=== PATIENT | male | born 1980 | race Caucasian/White ===

== ENCOUNTER 2017-08-01 20:27 | Inpatient (IN) | payer OTHER ==
[~2017-08-01] VITALS: Ht 182.9 cm; Wt 68.0 kg
[2017-08-01] MEDS ORDERED: IV NORMAL SALINE 1000 ML BAG IV ONE (21:00)
[2017-08-01] MEDS ORDERED: HYDROMORPHONE 1 MG/1 ML DISP.SYRIN IV ONE (21:00)
[2017-08-01] MEDS ORDERED: TDAP DIPH,PERTUSS,TET VAC/PF 0.5 ML DISP.SYRIN IM ONE ×2 (21:00→21:30)
[2017-08-01] MEDS ORDERED: ONDANSETRON 4 MG/2 ML VIAL IV ONE (21:00)
--- NOTE | 2017-08-01 21:00 | NUR ---
ER at pt bedside
--- NOTE | 2017-08-01 21:08 | NUR ---
EVITA arrived to speak with pt.
[2017-08-01] MEDS ORDERED: ONDANSETRON 4 MG/2 ML VIAL ONE (21:20)
[2017-08-01] MEDS ORDERED: HYDROMORPHONE 1 MG/1 ML DISP.SYRIN ONE (21:20)
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
[2017-08-01 21:35] LABS: BASOPHILS # (AUTO) 0.1 K/uL (0.0-8.0); BASOPHILS % (AUTO) 0.3 % (0.0-2.0); EOSINOPHILS % (AUTO) 0.3 % (0.0-7.0); HEMATOCRIT 43.4 % (36.7-47.1); HEMOGLOBIN 14.6 g/dL (12.5-16.3); LYMPHOCYTES # (AUTO) 2.6 K/uL (20.0-40.0); LYMPHOCYTES % (AUTO) 14.3 % (20.5-51.5); MEAN CORPUSCULAR HGB CONC 34 g/dL (32.5-36.3); MEAN CORPUSCULAR VOLUME 83.3 fL (73.0-96.2); MONOCYTES # (AUTO) 1.3 K/uL (2.0-10.0); MONOCYTES % (AUTO) 6.8 % (0.0-11.0); NEUTROPHILS # (AUTO) 14.4 K/uL (1.8-8.9); NEUTROPHILS % (AUTO) 78.3 % (38.5-71.5); PLATELET COUNT (AUTO) 260 K/uL (152-348); RED BLOOD CELL COUNT(AUTO) 5.21 MIL/uL (4.06-5.63); WHITE BLOOD COUNT (AUTO) 18.4 K/uL (3.6-10.2)
[2017-08-01 21:43] LABS: CREATININE 1.2 mg/dL (0.6-1.3)
[2017-08-01 21:48] LABS: BILIRUBIN,DIRECT 0.1 mg/dL (0.0-0.2); BILIRUBIN,TOTAL 0.4 mg/dL (0.2-1.0); TOTAL PROTEIN, SERUM 7.3 g/dL (6.4-8.2)
--- NOTE | 2017-08-01 22:35 | NUR ---
Pagejulianne Mercado for ortho consult.
--- NOTE | 2017-08-01 23:15 | NUR ---
FIORELLA LOFTON speaking w/ ortho.
[2017-08-01] MEDS ORDERED: NEOMY/BACITRA/POLYMYXIN B OINT UD PACKET TP ONE ×2 (23:30→23:45)
[2017-08-01] MEDS ORDERED: LIDOCAINE HCL 1% 20 ML VIAL IJ ONE (23:45)
[2017-08-01] MEDS ORDERED: LORAZEPAM 2 MG/1 ML VIAL IV ONE (23:45)
[2017-08-01] MEDS ORDERED: KETAMINE HCL 500 MG/10 ML INJ IV ONE (23:45)
[2017-08-02] MEDS ORDERED: KETAMINE HCL 500 MG/10 ML INJ ONE (00:05)
[2017-08-02] MEDS ORDERED: LORAZEPAM 2 MG/1 ML VIAL ONE (00:06)
[2017-08-02] MEDS ORDERED: ONDANSETRON 4 MG/2 ML VIAL IV PRN (01:15)
[2017-08-02] MEDS ORDERED: diphenhydrAMINE 50 MG/1 ML VIAL IV PRN (01:15)
[2017-08-02] MEDS ORDERED: ACETAMINOPHEN 650 MG SUPP.RECT RC PRN (01:15)
[2017-08-02] MEDS ORDERED: HYDROMORPHONE 1 MG/1 ML DISP.SYRIN IV PRN (01:15)
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
--- NOTE | 2017-08-02 01:55 | NUR ---
Pt. admitted to med surg, under care of Dr. Walden Belongs List completed
[2017-08-02] MEDS ORDERED: HYDROMORPHONE 1 MG/1 ML DISP.SYRIN ONE (02:01)
[2017-08-02 02:12] VITALS: BP 112/77
[2017-08-02] MEDS: IV D5/ 0.9% NACL 1,000 ML IV PRN ×2 (03:27→14:36)
[2017-08-02 04:35] VITALS: BP 100/52
[2017-08-02 06:36] LABS: BASOPHILS % (AUTO) 0.2 % (0.0-2.0); EOSINOPHILS % (AUTO) 0.2 % (0.0-7.0); HEMATOCRIT 41.3 % (36.7-47.1); HEMOGLOBIN 13.8 g/dL (12.5-16.3); LYMPHOCYTES # (AUTO) 2.2 K/uL (20.0-40.0); LYMPHOCYTES % (AUTO) 20.2 % (20.5-51.5); MEAN CORPUSCULAR HEMOGLOBIN 28.1 uug (23.8-33.4); MEAN CORPUSCULAR HGB CONC 34 g/dL (32.5-36.3); MEAN CORPUSCULAR VOLUME 83.9 fL (73.0-96.2); MONOCYTES % (AUTO) 9.6 % (0.0-11.0); NEUTROPHILS # (AUTO) 7.5 K/uL (1.8-8.9); NEUTROPHILS % (AUTO) 69.8 % (38.5-71.5); PLATELET COUNT (AUTO) 250 K/uL (152-348); RED BLOOD CELL COUNT(AUTO) 4.92 MIL/uL (4.06-5.63); WHITE BLOOD COUNT (AUTO) 10.7 K/uL (3.6-10.2)
[2017-08-02 07:07] LABS: BILIRUBIN,TOTAL 0.8 mg/dL (0.2-1.0); MAGNESIUM 2.6 mg/dL (1.8-2.4); PHOSPHOROUS 3.2 mg/dL (2.5-4.9); POTASSIUM 3.9 mmol/L (3.5-5.1); TOTAL PROTEIN, SERUM 6.9 g/dL (6.4-8.2)
--- NOTE | 2017-08-02 07:30 | NUR ---
PT RECEIVED IN BED SLEEPING,V/S ARE STABLE,NO C/O PAIN NOTED.CALL LIGHT WITH IN REACH
[2017-08-02] MEDS: FAMOTIDINE. 20 MG/2 ML VIAL IV SCH (08:06)
[2017-08-02] MEDS: HYDROMORPHONE 4 MG/1 ML DISP.SYRIN IV PRN ×2 (08:33→23:00)
[2017-08-02 11:30] VITALS: BP 108/72
[2017-08-02] MEDS: NICOTINE 14 MG/24HR PATCH TD SCH (14:36)
[2017-08-02 15:32] VITALS: BP 98/55
--- NOTE | 2017-08-02 17:00 | NUR ---
PT SEEN BY DR RODAS ORDERS RECEIVED NOTED AND CARRIED OUT
[2017-08-02 18:16] LABS: *BILIRUBIN,URIN NEGATIVE (NEGATIVE); *BLOOD, URINE NEGATIVE (NEGATIVE); *CLARITY,URINE CLEAR (CLEAR); *COLOR,URINE YELLOW (YELLOW); *KETONES,URINE NEGATIVE (NEGATIVE); *PROTEIN,URINE NEGATIVE (NEGATIVE); *UROBILINOGEN,URINE 0.2 E.U./dl (NORMAL); LEUKOCYTE ESTERASE ,URINE NEGATIVE (NEGATIVE); NITRITE, URINE NEGATIVE (NEGATIVE); PH,URINE 5.5 (5.0-8.0); UGLUCOSE NEGATIVE (NEGATIVE)
[2017-08-02 18:43] LABS: MUCUS,URINE MANY /LPF (0-FEW); URINE AMORPHOUS URATE FEW /HPF; WBC,URINE 0-3 /HPF (0-3)
--- NOTE | 2017-08-02 19:00 | NUR ---
Received patient in bed alert oriented, able to make needs known, left arm with sling. cont on pain management, call light within reach. remind patient to be npo after midnight. family at bedside.
[2017-08-02 20:00] VITALS: BP 127/75
[2017-08-03 05:57] LABS: BASOPHILS % (AUTO) 0.4 % (0.0-2.0); EOSINOPHILS # (AUTO) 0.1 K/uL (0.0-0.7); EOSINOPHILS % (AUTO) 1.3 % (0.0-7.0); HEMATOCRIT 41.6 % (36.7-47.1); HEMOGLOBIN 14.1 g/dL (12.5-16.3); LYMPHOCYTES # (AUTO) 2.6 K/uL (20.0-40.0); MEAN CORPUSCULAR HEMOGLOBIN 28.3 uug (23.8-33.4); MEAN CORPUSCULAR HGB CONC 34 g/dL (32.5-36.3); MEAN CORPUSCULAR VOLUME 83.7 fL (73.0-96.2); MONOCYTES # (AUTO) 1.1 K/uL (2.0-10.0); MONOCYTES % (AUTO) 12.3 % (0.0-11.0); NEUTROPHILS # (AUTO) 5.4 K/uL (1.8-8.9); PLATELET COUNT (AUTO) 243 K/uL (152-348); RED BLOOD CELL COUNT(AUTO) 4.97 MIL/uL (4.06-5.63); WHITE BLOOD COUNT (AUTO) 9.3 K/uL (3.6-10.2)
[2017-08-03 06:02] LABS: BILIRUBIN,TOTAL 0.7 mg/dL (0.2-1.0); CREATININE 0.9 mg/dL (0.6-1.3); MAGNESIUM 2.1 mg/dL (1.8-2.4); PHOSPHOROUS 3.4 mg/dL (2.5-4.9); POTASSIUM 3.6 mmol/L (3.5-5.1); TOTAL PROTEIN, SERUM 6.9 g/dL (6.4-8.2)
[2017-08-03] MEDS: HYDROMORPHONE 4 MG/1 ML DISP.SYRIN IV PRN ×2 (06:04→09:41)
[2017-08-03] MEDS: IV D5/ 0.9% NACL 1,000 ML IV PRN (06:05)
[2017-08-03 06:11] LABS: THYROID STIMULATING HORMONE 1.699 mIU/mL (0.358-3.740)
[2017-08-03 06:37] VITALS: BP 127/74
--- NOTE | 2017-08-03 07:04 | NUR ---
PATIENT SLEPT MOST OF THE NIGHT, CONT ON PAIN MANAGEMENT, CONT NPO....CONT TO MONITOR, L ARM SLING IN PLACE AT ALL TIME.
--- NOTE | 2017-08-03 07:36 | NUR ---
Received patient in bed alert oriented, able to make needs known, left arm with sling. call light within reach. remind patient to be npo for surgery
[2017-08-03] MEDS: NICOTINE 14 MG/24HR PATCH TD SCH (08:01)
[2017-08-03] MEDS: FAMOTIDINE. 20 MG/2 ML VIAL IV SCH (08:09)
[2017-08-03 11:12] VITALS: BP 110/60
[2017-08-03] MEDS ORDERED: POLYMYXIN B SULFATE 500,000 UNITS, BACITRACIN 50,000 UNITS, NORMAL SALINE 20 ML MC ONE ×3 (11:45)
[2017-08-03] MEDS ORDERED: ONDANSETRON 4 MG/2 ML VIAL IV ONE (11:53)
[2017-08-03] MEDS ORDERED: IV LACTATED RINGERS SOLUTION 1,000 ML BAG IV ONE (11:53)
[2017-08-03] MEDS ORDERED: CEFAZOLIN 1 G VIAL MC ONE (11:53)
[2017-08-03] MEDS ORDERED: DEXAMETHASONE SOD PHOSPHATE 4 MG INJ IV ONE (11:53)
[2017-08-03] MEDS ORDERED: PROPOFOL 200 MG/20 ML BOTTLE IV ONE (11:53)
[2017-08-03] MEDS ORDERED: LIDOCAINE HCL 2% 20 ML VIAL MC ONE (11:53)
--- NOTE | 2017-08-03 12:13 | NUR ---
pt went to or via bed for surgery in stable condition
[2017-08-03] MEDS ORDERED: HYDROMORPHONE 2 MG/1 ML DISP.SYRIN ONE (12:45)
[2017-08-03] MEDS ORDERED: MIDAZOLAM HCL 2 MG/2 ML VIAL ONE (12:45)
[2017-08-03] MEDS ORDERED: BUPIVACAINE 0.25% 30 ML VIAL ONE (13:18)
[2017-08-03] MEDS ORDERED: BUPIVACAINE/EPI PF 0.25% 30 ML VIAL ONE (13:18)
[2017-08-03] MEDS ORDERED: IPRATROPIUM BROMIDE 0.5 MG/2.5 ML NEBU NEB PRN (13:45)
[2017-08-03] MEDS ORDERED: ALBUTEROL SULFATE 2.5 MG/3 ML NEBU NEB PRN (13:45)
[2017-08-03] MEDS ORDERED: GUAIFENESIN/DEXTROMETHORPHAN 5 ML UDC PO PRN (13:45)
[2017-08-03] MEDS ORDERED: SEVOFLURANE 250 ML BOTTLE ONE (13:52)
[2017-08-03] MEDS ORDERED: FENTANYL CITRATE 100 MCG/2 ML AMPUL ONE (15:02)
--- NOTE | 2017-08-03 15:38 | NUR ---
pt received from recovery room via bed in stable condition.
[2017-08-03 15:45] VITALS: BP 130/76
[2017-08-03 16:05] VITALS: BP 128/71
[2017-08-03] MEDS ORDERED: HYDROCODONE/APAP 10-325 MG TABLET PO PRN (16:15)
[2017-08-03 16:39] VITALS: BP 116/83
[2017-08-03] MEDS: IV D5W-0.45% NS +20 KCL 1,000 ML IV PRN (16:43)
[2017-08-03] MEDS: MORPHINE SULFATE 4 MG/1 ML DISP.SYRIN IV PRN ×2 (17:57→22:22)
--- NOTE | 2017-08-03 19:00 | NUR ---
RECEIVED PATIENT ALERT ORIENTED, CONT ON PAIN MANAGEMENT, LEFT ARM WITH SLING DRESSING INTACT, CALL LIGHT WITHIN REACH. CONT TO MONITOR.
[2017-08-03] MEDS: KETOROLAC TROMETHAMINE 15 MG INJ IVP PRN (20:05)
[2017-08-03 20:18] VITALS: BP 117/71
[2017-08-03] MEDS: CEFAZOLIN 50 ML IV SCH (21:59)
[2017-08-04 04:00] VITALS: BP 110/67
[2017-08-04] MEDS: MORPHINE SULFATE 4 MG/1 ML DISP.SYRIN IV PRN ×4 (04:08→20:14)
[2017-08-04] MEDS: CEFAZOLIN 50 ML IV SCH (05:46)
[2017-08-04] MEDS: PANTOPRAZOLE SODIUM 40 MG TABLET.DR PO SCH (05:47)
[2017-08-04] MEDS: IV D5W-0.45% NS +20 KCL 1,000 ML IV PRN (05:50)
[2017-08-04] MEDS: KETOROLAC TROMETHAMINE 15 MG INJ IVP PRN (06:23)
[2017-08-04 06:38] LABS: BASOPHILS % (AUTO) 0.3 % (0.0-2.0); EOSINOPHILS # (AUTO) 0.1 K/uL (0.0-0.7); EOSINOPHILS % (AUTO) 0.6 % (0.0-7.0); HEMATOCRIT 39.7 % (36.7-47.1); HEMOGLOBIN 13.2 g/dL (12.5-16.3); LYMPHOCYTES # (AUTO) 2.8 K/uL (20.0-40.0); LYMPHOCYTES % (AUTO) 23.2 % (20.5-51.5); MEAN CORPUSCULAR HGB CONC 33 g/dL (32.5-36.3); MEAN CORPUSCULAR VOLUME 84.3 fL (73.0-96.2); MONOCYTES # (AUTO) 1.3 K/uL (2.0-10.0); MONOCYTES % (AUTO) 11.2 % (0.0-11.0); NEUTROPHILS # (AUTO) 7.8 K/uL (1.8-8.9); NEUTROPHILS % (AUTO) 64.7 % (38.5-71.5); PLATELET COUNT (AUTO) 232 K/uL (152-348); RED BLOOD CELL COUNT(AUTO) 4.72 MIL/uL (4.06-5.63)
[2017-08-04 06:53] LABS: BILIRUBIN,TOTAL 0.7 mg/dL (0.2-1.0); MAGNESIUM 1.9 mg/dL (1.8-2.4); PHOSPHOROUS 2.8 mg/dL (2.5-4.9)
--- NOTE | 2017-08-04 07:00 | NUR ---
Received client in bed awake, alert and oriented time 4, able to communicate needs, ambulatory. Voiced wanting to go out and smoke. It was informed that this is a non-smoking facility, continues to voice the need to go out and smoke. Bed at lowest position for safety and call light within reach for assistance
--- NOTE | 2017-08-04 08:07 | NUR ---
Client is leaving outside to smoke a cigarette after being told several times it is unsafe. The nicotine patch was offered and he stated he made his body itch, that even if it was applied he would remove it.
[2017-08-04] MEDS: NICOTINE 14 MG/24HR PATCH TD SCH (09:00)
--- NOTE | 2017-08-04 09:16 | NUR ---
Offered client Nicotine patch again and he refused it stating that it makes him itchy.
[2017-08-04] MEDS: LEVOFLOXACIN 500 MG/D5W 500 MG in PREMIXED 1 EACH IV SCH (11:23)
[2017-08-04 11:29] VITALS: BP 124/72
[2017-08-04] MEDS: ACETAMINOPHEN 325 MG TABLET PO PRN (11:54)
--- NOTE | 2017-08-04 12:01 | NUR ---
Tylenol given for temp of 99.8
[2017-08-04] MEDS: MAGNESIUM HYDROXIDE 30 ML LIQUID UDC PO PRN (12:42)
[2017-08-04] MEDS: DOCUSATE SODIUM 100 MG CAPSULE PO SCH ×2 (12:42→20:17)
--- NOTE | 2017-08-04 12:46 | NUR ---
Reassessment of temperature, 99.2
--- NOTE | 2017-08-04 13:11 | NUR ---
IV site on the right hand removed intact with minimal to none bleeding at the removal site due to leaking
--- NOTE | 2017-08-04 14:05 | NUR ---
New IV started, 20g on the inner right side of the forearm. No complications, client tolerated well
[2017-08-04] MEDS: BACITRACIN ZINC OINT 15 GM TUBE TOP SCH ×2 (14:32→20:16)
[2017-08-04 15:21] VITALS: BP 107/62
--- NOTE | 2017-08-04 18:42 | NUR ---
Client is in bed awake, alert and oriented times 4. Client has been compliant with all nursing care and medication administration. No pain at this time as stated by the client, no apparent signs and symptoms of SOB, distress or discomfort. Bed at lowest position for safety and call light within reach for assistance
--- NOTE | 2017-08-04 19:05 | NUR ---
Stopped the hydration from running and heplocked the client's IV line. Client is going downstairs with his brother. Client knows that he is not allowed to leave the premises. Client stated it would only be five minutes.
--- NOTE | 2017-08-04 19:35 | NUR ---
PT RECEIVED IN BED, AWAKE. FAMILY AT BEDSIDE. A/OX4. ABLE TO MAKE NEEDS KNOWN. V/S STABLE. IN NO ACUTE DISTRESS. PT C/O OF LEFT ARM PAIN AT 01/16. TO ADMIN PAIN MEDICATION ORDERED. IVF INFUSING. ON RA, TOLERATING WELL. AFEBRILE. SAFETY MEASURES IMPLEMENTED. CALL LIGHT WITHIN REACH.
[2017-08-04 20:00] VITALS: BP 132/79
[2017-08-05] MEDS: IV D5W-0.45% NS +20 KCL 1,000 ML IV PRN (03:26)
[2017-08-05 05:47] VITALS: BP 118/61
[2017-08-05] MEDS: ACETAMINOPHEN 325 MG TABLET PO PRN (05:50)
[2017-08-05 05:59] LABS: BASOPHILS # (AUTO) 0.1 K/uL (0.0-8.0); BASOPHILS % (AUTO) 0.5 % (0.0-2.0); EOSINOPHILS # (AUTO) 0.4 K/uL (0.0-0.7); EOSINOPHILS % (AUTO) 3.9 % (0.0-7.0); HEMATOCRIT 40.7 % (36.7-47.1); HEMOGLOBIN 13.8 g/dL (12.5-16.3); LYMPHOCYTES # (AUTO) 2.7 K/uL (20.0-40.0); LYMPHOCYTES % (AUTO) 26.4 % (20.5-51.5); MEAN CORPUSCULAR HEMOGLOBIN 28.3 uug (23.8-33.4); MEAN CORPUSCULAR HGB CONC 34 g/dL (32.5-36.3); MEAN CORPUSCULAR VOLUME 83.7 fL (73.0-96.2); MONOCYTES % (AUTO) 10.3 % (0.0-11.0); NEUTROPHILS % (AUTO) 58.9 % (38.5-71.5); PLATELET COUNT (AUTO) 248 K/uL (152-348); RED BLOOD CELL COUNT(AUTO) 4.87 MIL/uL (4.06-5.63); WHITE BLOOD COUNT (AUTO) 10.1 K/uL (3.6-10.2)
[2017-08-05] MEDS: PANTOPRAZOLE SODIUM 40 MG TABLET.DR PO SCH (06:00)
[2017-08-05 06:13] LABS: BILIRUBIN,TOTAL 0.4 mg/dL (0.2-1.0); CREATININE 0.9 mg/dL (0.6-1.3); MAGNESIUM 1.9 mg/dL (1.8-2.4); PHOSPHOROUS 3.1 mg/dL (2.5-4.9); POTASSIUM 4.3 mmol/L (3.5-5.1)
--- NOTE | 2017-08-05 06:15 | NUR ---
END OF SHIFT NOTES. PT SLEPT INTERMITTENTLY THROUGHOUT SHIFT. IN STABLE CONDITION. IVF INFUSING. AFEBRILE. C/O OF LEFT ARM PAIN MANAGED THROUGHOUT SHIFT. PAIN MEDICATION ADMINISTERED ORDERED. PT SEEN FEBRILE WITH TEMP OF 99.7F. COOLING MEASURES INITIATED, TYLENOO ADMINISTERED ORDERED. CONT TO HAVE CONSTIPATION, BOWEL REGIMEN MAINTAINED. STOOL SOFTENER PROVIDED. WILL ENDORSE TO DAY SHIFT NURSE. ALL NEEDS ATTENDED. SAFETY MAINTAINED. CALL LIGHT WITHIN REACH.
[2017-08-05] MEDS: LEVOFLOXACIN 500 MG/D5W 500 MG in PREMIXED 1 EACH IV SCH (08:21)
[2017-08-05] MEDS: DOCUSATE SODIUM 100 MG CAPSULE PO SCH (08:21)
[2017-08-05] MEDS: BACITRACIN ZINC OINT 15 GM TUBE TOP SCH (08:22)
[2017-08-05] MEDS: MAGNESIUM HYDROXIDE 30 ML LIQUID UDC PO PRN (08:31)
[2017-08-05] MEDS: NICOTINE 14 MG/24HR PATCH TD SCH (08:39)
--- NOTE | 2017-08-05 09:55 | NUR ---
PT VERBALIZES THAT HE WANTS TO GO OUTSIDE FOR A "WALK". PT WAS EXPLAINED THE RISKS OF LEAVING THE HOSPITAL AND WAS RECOMMENDED TO NOT LEAVE. PT IS AWARE OF THE RISKS OF LEAVING THE HOSPITAL AND STILL LEAVES.CHARGE NURSE NOTIFIED. THERMODYNAMICIST NOTIFIED.
[2017-08-05] MEDS ORDERED: BISACODYL 10 MG SUPP.RECT RC PRN (10:00)
--- NOTE | 2017-08-05 10:06 | NUR ---
PT ARRIVED BACK ON THE UNIT. CALM, V/S STABLE. PT SMELLED OF CIGARETTES. PT VERBALIZES, " I DIDN'T GO FOR A WALK, I WENT DOWN TO SMOKE A CIGARETTE." PT WAS EXPLAINED THE RISKS OF LEAVING THE HOSPITAL AGAIN AND RECOMMENDED FOR HIM NOT TO LEAVE. PT IS AGREEABLE AT THIS TIME. CONTINUE TO MONITOR PT.
[2017-08-05] MEDS ORDERED: MAGNESIUM CITRATE 296 ML BOTTLE PO ONE (10:45)
--- NOTE | 2017-08-05 11:30 | NUR ---
PT C/O SWELLING AND NUMBNESS IN LEFT HAND. SHAKER OPERATOR AND MD RODAS NOTIFIED. THE DRESSING WAS LOOSENED AND ICE WAS APPLIED TO THE LEFT HAND AND FOREARM PER MD REQUEST. CAPILLARY REFILL WAS ASSESSED <3 SECONDS. STRONG BOUNDING PULSE OF THE LEFT WRIST FELT. SHAKER OPERATOR ALSO FELT PT'S PULSE. CONTINUE TO MONITOR PT.
[2017-08-05 11:42] VITALS: BP 106/68
[2017-08-05] MEDS ORDERED: HYDROCODONE/APAP 5-325MG TABLET PO PRN (15:30)
[2017-08-05 15:34] VITALS: BP 110/77
[2017-08-05] MEDS ORDERED: HYDR-3326 PO (15:34)
--- NOTE | 2017-08-05 16:58 | NUR ---
PT DISCHARGED WITH BROTHER QIAN. PT IS CALM, COOPERATIVE, SHOWS NO SIGNS OF RESPIRATORY DISTRESS. PT DISCHARGE WITH ALL BELONGINGS,PRESCRIPTIONS, VALUABLES AND EXIT CARE PACKET. PT INSTRUCTED TO CALL DR. RODAS IF NUMBNESS CONTINUES IN THUMB. PT INSTRUCTED TO ICE HAND TO HELP DECREASE SWELLING IN HAND.
[2017-08-05 17:15] VITALS: BP 110/77
== END 2017-08-05 17:00 | disposition home or self-care (01) | DRG 315 ==
LOC: ER 20:28 → MED 08-02 00:15
PROVIDERS: ADMIT Internal Medicine; ATTEND Internal Medicine
PROC: 0HQ1XZZ Repair Face Skin, External Approach (ICD-10-PCS; principal; 2017-08-02)
PROC: 0PSK04Z Reposition Right Ulna with Internal Fixation Device, Open Approach (ICD-10-PCS; 2017-08-03)
PROC: 0PSH04Z Reposition Right Radius with Internal Fixation Device, Open Approach (ICD-10-PCS; 2017-08-03)
DX: S52.501A Unspecified fracture of the lower end of right radius, initial encounter for closed fracture (principal); S09.90XA Unspecified injury of head, initial encounter; E87.1 Hypo-osmolality and hyponatremia; K50.90 Crohn's disease, unspecified, without complications; E88.09 Other disorders of plasma-protein metabolism, not elsewhere classified; S59.001A Unspecified physeal fracture of lower end of ulna, right arm, initial encounter for closed fracture; E83.51 Hypocalcemia; M48.02 Spinal stenosis, cervical region; Y00.XXXA Assault by blunt object, initial encounter; Y92.038 Other place in apartment as the place of occurrence of the external cause; K59.00 Constipation, unspecified; S01.111A Laceration without foreign body of right eyelid and periocular area, initial encounter; F17.210 Nicotine dependence, cigarettes, uncomplicated; M50.322 Other cervical disc degeneration at C5-C6 level; E78.5 Hyperlipidemia, unspecified; S61.451A Open bite of right hand, initial encounter; Y04.1XXA Assault by human bite, initial encounter; Z23 Encounter for immunization; E83.42 Hypomagnesemia; D72.829 Elevated white blood cell count, unspecified
CPT/HCPCS: 36415; 70030-TC; 70450; 71045; 72125; 73090; 76000; 83735; 84100; 84443; 85025; 85730; 87086; 90715; 93005; A4217; A4649; J0690; J1100; J1170; J1885; J1956; J2060; J2250; J2270; J2405; J3010; J3490; J7030; J7042; J7120